=== PATIENT | male | born 1995 | race Caucasian/White ===

== ENCOUNTER 2018-03-28 13:29 | Emergency (ER) | payer BC, SELFPAY ==
[2018-03-28] MEDS ORDERED: LIDOCAINE 1% 20 ML MDV ONE (14:50)
[2018-03-28] MEDS ORDERED: TETANUS & DIPHTHERIA TOX,ADULT 0.5 ML VIAL ONE (14:50)
--- NOTE | 2018-03-28 16:07 | RAD REPORT ---
EXAM DESCRIPTION: RAD - Finger-Thumb Right - 03/28/2018 2:44 pm CLINICAL HISTORY: Soft tissue laceration of the thumb COMPARISON: None. FINDINGS: No fracture or acute bone finding. Bandaging around the thumb limits soft tissue detail. N o foreign body. IMPRESSION: No bone abnormality. No foreign body.
--- NOTE | 2018-03-28 16:28 | EDPHYS ---
Physician Documentation [facility] Name: Donnie Hughes Age: 23 yrs Sex: Male : 1995 Arrival Date: 03/28/2018 Time: 13:33 Bed 25 Private MD: ED Physician Mckinley Benjamin HPI: 03/28 14:19 This 23 yrs old Male presents to ER via Ambulatory with complaints of Thumb pm1 laceration. 14:19 The patient or guardian reports a laceration, 2 cm(s). The complaints affect the palmar pm1 aspect of distal phalanx of right thumb. Context: The problem was sustained at home, resulted from opening up can of food. Onset: The symptoms/episode began/occurred just prior to arrival. Modifying factors: The symptoms are alleviated by pressure to area, the symptoms are aggravated by nothing. Associated signs and symptoms: Pertinent negatives: cyanosis distally, decreased sensation distally, numbness distally, tingling distally. The patient has not experienced similar symptoms in the past. The patient has not recently seen a physician, the patient's primary care provider is Dr. Teixeira. Historical: - Allergies: 13:52 Augmentin (Vomiting); hb 13:52 Biaxin (Vomiting); hb - Home Meds: 13:52 Wellbutrin Oral [Active]; hb - PSHx: 13:52 testicle; hb - Immunization history:: Adult Immunizations up to date. - Social history:: Smoking status: Patient/guardian denies using tobacco. ROS: 14:20 Constitutional: Negative for fever, chills, and weight loss, Eyes: Negative for injury, pm1 pain, redness, and discharge, ENT: Negative for injury, pain, and discharge, Neck: Negative for injury, pain, and swelling, Cardiovascular: Negative for chest pain, palpitations, and edema, Respiratory: Negative for shortness of breath, cough, wheezing, and pleuritic chest pain, Abdomen/GI: Negative for abdominal pain, nausea, vomiting, diarrhea, and constipation, Back: Negative for injury and pain. 14:20 Neuro: Negative for headache, weakness, numbness, tingling, and seizure. 14:20 MS/extremity: Positive for laceration, of the palmar aspect of distal phalanx of right thumb. 14:20 Skin: Positive for laceration(s), of the palmar aspect of distal phalanx of right thumb. Exam: 14:20 Constitutional: This is a well developed, well nourished patient who is awake, alert, pm1 and in no acute distress. Head/Face: Normocephalic, atraumatic. Chest/axilla: Normal chest wall appearance and motion. Nontender with no deformity. No lesions are appreciated. Cardiovascular: Regular rate and rhythm with a normal S1 and S2. No gallops, murmurs, or rubs. Normal PMI, no JVD. No pulse deficits. Respiratory: Lungs have equal breath sounds bilaterally, clear to auscultation and percussion. No rales, rhonchi or wheezes noted. No increased work of breathing, no retractions or nasal flaring. Back: No spinal tenderness. No costovertebral tenderness. Full range of motion. 14:20 Musculoskeletal/extremity: Extremities: grossly normal except: noted in the palmar aspect of distal phalanx of right thumb: laceration, ROM: intact in all extremities, full active range of motion, in the right thumb, Circulation is intact in all extremities. Sensation intact. 14:20 Skin: Appearance: normal except for affected area, 2 cm laceration to palmar aspect of right thumb. 14:20 Neuro: Orientation: is normal, Motor: moves all fours, Gait: is steady, at a normal pace, without difficulty. Vital Signs: 13:52 BP 137 / 74; Pulse 82; Resp 16; Temp 98.1; Pulse Ox 100% on R/A; Weight 136.08 kg; hb Height 5 ft. 9 in. (175.26 cm); Pain 4/10; 14:52 BP 132 / 89; Pulse 91; Resp 16; Pulse Ox 99% ; Pain 4/10; tt1 15:55 BP 126 / 97; Pulse 80; Resp 16; Pulse Ox 97% ; Pain 5/10; tt1 13:52 Body Mass Index 44.30 (136.08 kg, 175.26 cm) hb Laceration: 16:25 Wound Repair of 2cm ( 0.8in ) subcutaneous laceration to palmar aspect of distal pm1 phalanx of right thumb. Irregularly shaped.. Distal neuro/vascular/tendon intact. Anesthesia: Digital block administered with 2 mls of 1% lidocaine. Wound prep: Extensive cleansing by nurse, Wound irrigation by nurse, Wound explored extensively, Copious irrigation. Skin closed with 5 5-0 Prolene using simple sutures and sterile technique. Dressed with 4x4's. Patient tolerated well. MDM: 13:55 Patient medically screened. pm1 16:26 Data reviewed: vital signs. Data interpreted: Pulse oximetry: on room air is 97 %. pm1 Interpretation: normal. Counseling: I had a detailed discussion with the patient and/or guardian regarding: the historical points, exam findings, and any diagnostic results supporting the discharge/admit diagnosis, the need for outpatient follow up, to return to the emergency department if symptoms worsen or persist or if there are any questions or concerns that arise at home. 03/28 14:35 Order name: Finger-Thumb Right; Complete Time: 16:25 EDCO 03/28 14:07 Order name: Wound Care; Complete Time: 14:51 pm1 Administered Medications: 15:00 Drug: Tetanus-Diphtheria Toxoid Adult 0.5 ml {Cotton Grower: [employer] \T\ [employer]izer. Exp: tl3 07/01/2020. Lot #: [id number]. } Route: IM; Site: right deltoid; 16:20 Follow up: Response: No adverse reaction tl3 16:20 Drug: Lidocaine (1 %) 5 ml {Note: per chucho.} Volume: 5 ml; Route: Infiltration; 3 16:20 Follow up: Response: No adverse reaction; Marked relief of symptoms tl3 Disposition: 03/29 12:35 Co-signature as Attending Physician, Mckinley Benjamin MD. Disposition: 03/28/18 16:28 Discharged to Home. Impression: Laceration without foreign body of right thumb without damage to nail. - Condition is Stable. - Discharge Instructions: Laceration Care, Adult. - Prescriptions for Bactrim DS 800- 160 mg Oral Tablet - take 1 tablet by ORAL route every 12 hours for 10 days; 20 tablet. - Work release form, Medication Reconciliation Form, Thank You Letter, Antibiotic Education, Prescription Opioid Use form. - Follow up: Emergency Department; When: As needed; Reason: Worsening of condition. Follow up: Private Physician; When: 2 - 3 days; Reason: Recheck today's complaints, Continuance of care, Re-evaluation by your physician. - Problem is new. - Symptoms have improved. Signatures: Dispatcher [employer] EDMS Chucho Chopra NP SUPERVISOR [employer]IANCE [employer]SEMBLY pm1 Chiquita Charles, RN RN hb Mckinley Benjamin MD MD gs Marilee Franco RN RN tl3 Corrections: (The following items were deleted from the chart) 03/28 14:35 14:07 Hand Right 3 View+RAD.RAD.BRZ ordered. EDMS EDMS
--- NOTE | 2018-03-28 16:28 | ER ---
Nurse's Notes [facility] Name: Donnie Hughes Age: 23 yrs Sex: Male : 1995 Arrival Date: 03/28/2018 Time: 13:33 Bed 25 Private MD: Diagnosis: Laceration without foreign body of right thumb without damage to nail Presentation: 03/28 13:50 Presenting complaint: Patient states: Cut right thumb on top of can at 1300 today. hb Bleeding controlled. Transition of care: patient was not received from another setting of care. Onset of symptoms was March 28, 2018 at 13:00. Initial Sepsis Screen: Does the patient meet any 2 criteria? No. Patient's initial sepsis screen is negative. Does the patient have a suspected source of infection? No. Patient's initial sepsis screen is negative. Care prior to arrival: None. 13:50 Method Of Arrival: Ambulatory hb 13:50 Acuity: QUE 4 hb Historical: - Allergies: 13:52 Augmentin (Vomiting); hb 13:52 Biaxin (Vomiting); hb - Home Meds: 13:52 Wellbutrin Oral [Active]; hb - PSHx: 13:52 testicle; hb - Immunization history:: Adult Immunizations up to date. - Social history:: Smoking status: Patient/guardian denies using tobacco. Screenin:18 Abuse screen: Denies threats or abuse. Denies injuries from another. Nutritional tl3 screening: No deficits noted. Tuberculosis screening: No symptoms or risk factors identified. Fall Risk None identified. Assessment: 14:00 General: Appears in no apparent distress. comfortable, well groomed, well developed, tl3 well nourished, Behavior is calm, cooperative, appropriate for age. Pain: Complains of pain in right hand and palmar aspect of distal phalanx of right thumb. Neuro: Level of Consciousness is awake, alert, obeys commands, Oriented to person, place, time, situation, Appropriate for age. Cardiovascular: Heart tones S1 S2 present. Respiratory: Airway is patent Trachea midline Respiratory effort is even, unlabored, Respiratory pattern is regular, symmetrical. GI: No signs and/or symptoms were reported involving the gastrointestinal system. : No signs and/or symptoms were reported regarding the genitourinary system. EENT: No signs and/or symptoms were reported regarding the EENT system. Derm: No signs and/or symptoms reported regarding the dermatologic system. Musculoskeletal: Capillary refill < 3 seconds, in right thumb. Injury Description: Laceration sustained to palmar aspect of distal phalanx of right thumb. 15:10 Reassessment: Patient appears in no apparent distress at this time. No changes from tl3 previously documented assessment. Patient and/or family updated on plan of care and expected duration. Pain level reassessed. Patient is alert, oriented x 3, equal unlabored respirations, skin warm/dry/pink. pt wound cleaned with betadine and saline, pressure dressing applied. 16:18 Reassessment: Patient appears in no apparent distress at this time. No changes from tl3 previously documented assessment. Patient and/or family updated on plan of care and expected duration. Pain level reassessed. Patient is alert, oriented x 3, equal unlabored respirations, skin warm/dry/pink. suturing being done at bedside. Vital Signs: 13:52 BP 137 / 74; Pulse 82; Resp 16; Temp 98.1; Pulse Ox 100% on R/A; Weight 136.08 kg; hb Height 5 ft. 9 in. (175.26 cm); Pain 4/10; 14:52 BP 132 / 89; Pulse 91; Resp 16; Pulse Ox 99% ; Pain 4/10; tt1 15:55 BP 126 / 97; Pulse 80; Resp 16; Pulse Ox 97% ; Pain 5/10; tt1 13:52 Body Mass Index 44.30 (136.08 kg, 175.26 cm) hb ED Course: 13:33 Patient arrived in ED. mr 13:51 Triage completed. hb 13:52 Arm band placed on left wrist. hb 13:55 Chucho Chopra NP is PHCP. pm1 13:55 Mckinley Benjamin MD is Attending Physician. pm1 14:00 No apparent distress. tl3 14:00 Patient has correct armband on for positive identification. Bed in low position. Call tl3 light in reach. Side rails up X 1. Adult w/ patient. 14:00 No provider procedures requiring assistance completed. Patient did not have IV access tl3 during this emergency room visit. 14:02 Marilee Franco RN is Primary Nurse. tl3 14:41 X-ray completed. Portable x-ray completed in exam room. Patient tolerated procedure la2 well. 14:44 Finger-Thumb Right In Process Unspecified. EDMS Administered Medications: 15:00 Drug: Tetanus-Diphtheria Toxoid Adult 0.5 ml {Junior Accountant Bookkeeper: [employer]. Exp: tl3 07/01/2020. Lot #: [id number]. } Route: IM; Site: right deltoid; 16:20 Follow up: Response: No adverse reaction tl3 16:20 Drug: Lidocaine (1 %) 5 ml {Note: per chucho.} Volume: 5 ml; Route: Infiltration; tl3 16:20 Follow up: Response: No adverse reaction; Marked relief of symptoms tl3 Outcome: 16:28 Discharge ordered by MD. pm1 16:48 Patient left the ED. tl3 16:59 Discharged to home ambulatory. tl3 16:59 Condition: stable 16:59 Discharge instructions given to patient, family, Instructed on discharge instructions, follow up and referral plans. medication usage, Demonstrated understanding of instructions, follow-up care, medications, wound care, Prescriptions given X 1. Signatures: Dispatcher [employer] EDMS Uday Sienna John tt1 Chucho Chopra, ABY PHERESIS SPECIALIST pm1 Chiquita Charles, RN RN Ana Luisa Cartagena la2 Marilee Franco, LUIS RN tl3
== END 2018-03-28 16:48 | disposition home or self-care (01) ==
LOC: ER 13:29
PROC: 0JQJ0ZZ Repair Right Hand Subcutaneous Tissue and Fascia, Open Approach (ICD-10-PCS; principal; 2018-03-28)
DX: S61.011A Laceration without foreign body of right thumb without damage to nail, initial encounter (principal); W26.9XXA Contact with unspecified sharp object(s), initial encounter; Y93.89 Activity, other specified; Y92.000 Kitchen of unspecified non-institutional (private) residence as the place of occurrence of the external cause; Z23 Encounter for immunization; Z88.1 Allergy status to other antibiotic agents; Z88.8 Allergy status to other drugs, medicaments and biological substances
CPT/HCPCS: 90714; 99283

== ENCOUNTER 2018-06-09 07:04 | Emergency (ER) | payer BC ==
[2018-06-09] MEDS ORDERED: NA CHLORIDE 0.9% 1,000 ML ONE (07:37)
[2018-06-09] MEDS ORDERED: ONDANSETRON 4 MG/2 ML VIAL ONE ×2 (07:37→09:49)
[2018-06-09 08:07] LABS: Absolute Lymphocytes (CBC) 1.1 K/uL (0.7-4.9); Absolute Monocytes 0.8 K/uL (0.1-1.3); Absolute Neutrophil 6.8 K/uL (1.8-8.0); Basophils % 0.5 % (0-1.3); Eosinophils % 1.6 % (0-4.4); Hematocrit 43.1 % (39.6-49.0); Lymphocytes % 12.9 % (15.3-44.8); MCH 28.9 pg (27.0-35.0); MCV 83.9 fL (80-100); MPV 8.2 fL (7.6-11.3); Monocytes % 9.1 % (3.3-12.3); RBC Red Blood Cell Count 5.14 M/uL (4.33-5.43)
[2018-06-09 08:16] LABS: Albumin 4.2 g/dL (3.4-5.0); Bilirubin Direct 0.1 mg/dL (0-0.2); Bilirubin Total 0.5 mg/dL (0.2-1.0); Potassium 3.9 mmol/L (3.5-5.1); Protein, Total 7.7 g/dL (6.4-8.2)
[2018-06-09 09:35] LABS: Urine Blood NEGATIVE (NEG); Urine Glucose NEGATIVE (NEG); Urine Protein NEGATIVE (NEG)
--- NOTE | 2018-06-09 09:57 | RAD REPORT ---
EXAM DESCRIPTION: CTAbdomen Pelvis W Contrast - 06/09/2018 9:38 am CLINICAL HISTORY: Abdominal pain. bloody stools;Abd pain COMPARISON: No comparisons TECHNIQUE: Biphasic CT imaging of the abdomen and pelvis was performed with 100 ml non-ionic IV cont rast. All CT scans are performed using dose optimization technique as appropriate and may include automated exposure control or mA/KV adjustment according to patient size. FINDINGS: The lung bases are clear. The liver demonstrates diffuse fatty infiltration. The spleen, pancreas, adrenal glands and kidneys a re within normal limits. No bowel obstruction, free air, free fluid or abscess. The appendix is normal. No evidence of signi ficant lymphadenopathy. No suspicious bony findings. IMPRESSION: No acute intra-abdominal or pelvic finding.
--- NOTE | 2018-06-09 10:20 | EDPHYS ---
Physician Documentation [facility] Name: Donnie Hughes Age: 23 yrs Sex: Male : 1995 Arrival Date: 06/09/2018 Time: 07:05 Bed 16 Private MD: Jean Carlos Teixeira E ED Physician Roman Moon HPI: 06/09 07:38 This 23 yrs old Male presents to ER via Ambulatory with complaints of Bloody rn Stools, Weakness, Dizziness. 07:38 The patient presents to the emergency department with rectal bleeding. Onset: The rn symptoms/episode began/occurred last night. Abdominal pain: described as achy, located in the suprapubic area, right lower quadrant and left lower quadrant, that does not radiate. Modifying factors: The symptoms are alleviated by nothing, the symptoms are aggravated by nothing. Severity of symptoms: At their worst the symptoms were mild in the emergency department the symptoms are unchanged. The patient has not experienced similar symptoms in the past. Reports 4 episodes of bloody stool, bright red, mild to moderate amount, + mild dizziness, + mild lower abd pressure, blood mixed with stool. . Historical: - Allergies: 07:12 Augmentin (Vomiting); hj 07:12 Biaxin (Vomiting); hj - Home Meds: 07:12 Wellbutrin Oral [Active]; hj - PMHx: 07:12 Depression; hj - PSHx: 07:12 testicle; hj - Immunization history:: Adult Immunizations up to date. - Social history:: Smoking status: Patient/guardian denies using tobacco, Patient/guardian denies using alcohol. - Ebola Screening: : Patient negative for fever greater than or equal to 101.5 degrees Fahrenheit, and additional compatible Ebola Virus Disease symptoms Patient denies exposure to infectious person Patient denies travel to an Ebola-affected area in the 21 days before illness onset. - Family history:: not pertinent. - Hospitalizations: : No recent hospitalization is reported. ROS: 07:38 Constitutional: Negative for fever, chills, and weight loss, Eyes: Negative for injury, rn pain, redness, and discharge, Cardiovascular: Negative for chest pain, palpitations, and edema, Respiratory: Negative for shortness of breath, cough, wheezing, and pleuritic chest pain, Abdomen/GI: + abd pain and rectal bleeding MS/Extremity: Negative for injury and deformity, Skin: Negative for injury, rash, and discoloration, Neuro: + lightheaded and dizzy Exam: 07:38 Constitutional: Overweight male, no acute distress Head/Face: Normocephalic, rn atraumatic. Eyes: Pupils equal round and reactive to light, extra-ocular motions intact. Lids and lashes normal. Conjunctiva and sclera are non-icteric and not injected. Cornea within normal limits. Periorbital areas with no swelling, redness, or edema. ENT: dry MM Cardiovascular: Regular rate and rhythm with a normal S1 and S2. No gallops, murmurs, or rubs. Normal PMI, no JVD. No pulse deficits. Respiratory: Lungs have equal breath sounds bilaterally, clear to auscultation and percussion. No rales, rhonchi or wheezes noted. No increased work of breathing, no retractions or nasal flaring. Abdomen/GI: soft, + mild lower abd tenderness, no guarding/rebound MS/ Extremity: Pulses equal, no cyanosis. Neurovascular intact. Full, normal range of motion. Equal circumference. Neuro: Awake and alert, GCS 15, oriented to person, place, time, and situation. Cranial nerves II-XII grossly intact. Motor strength 5/5 in all extremities. Sensory grossly intact. Vital Signs: 07:13 BP 141 / 89; Pulse 90; Resp 18; Temp 98.9(O); Pulse Ox 96% on R/A; Weight 136.08 kg; hj Height 5 ft. 9 in. (175.26 cm); Pain 2/10; 07:43 BP 131 / 91; Pulse 88; Resp 19; Pulse Ox 98% on R/A; ae1 08:58 BP 126 / 70; Pulse 93; Resp 17; Pulse Ox 97% on R/A; mh5 10:36 BP 121 / 83; Pulse 92; Resp 16; Pulse Ox 96% on R/A; ae1 07:13 Body Mass Index 44.30 (136.08 kg, 175.26 cm) MDM: 07:15 Patient medically screened. rn 10:16 Differential diagnosis: hemorrhoids, proctitis, colitis. Data reviewed: vital signs, rn nurses notes, lab test result(s), radiologic studies, CT scan, and as a result, I will discharge patient. Counseling: I had a detailed discussion with the patient and/or guardian regarding: the historical points, exam findings, and any diagnostic results supporting the discharge/admit diagnosis, lab results, radiology results, the need for outpatient follow up, to return to the emergency department if symptoms worsen or persist or if there are any questions or concerns that arise at home. Special discussion: I discussed with the patient/guardian in detail that at this point there is no indication for admission to the hospital. It is understood, however, that if the symptoms persist or worsen the patient needs to return immediately for re-evaluation. Based on the history and exam findings, there is no indication for further emergent testing or inpatient evaluation. I discussed with the patient/guardian the need to see the licensed psychologist for further evaluation of the symptoms. ED course: Pt with stable vitals, normal H/H, painless rectal bleeding, most likely internal hemorrhoids, will dc home with abx in case early inflammation given abd pressure, and GI f/u, return precautions given and understood.. 06/09 07:31 Order name: Basic Metabolic Panel; Complete Time: 08:19 rn 06/09 07:31 Order name: CBC with Diff; Complete Time: 08:19 rn 06/09 07:31 Order name: Hepatic Function; Complete Time: 08:19 rn 06/09 07:31 Order name: Lipase; Complete Time: 08:19 rn 06/09 07:31 Order name: CT Abd/Pelvis - W/Contrast; Complete Time: 10:04 rn 06/09 08:56 Order name: Urine Dipstick--Ancillary (enter results); Complete Time: 09:45 ag 06/09 07:31 Order name: IV Saline Lock; Complete Time: 07:32 rn 06/09 07:31 Order name: Labs collected and sent; Complete Time: 07:40 rn Administered Medications: 07:33 Drug: Zofran 4 mg Route: IVP; Site: left antecubital; ae1 08:23 Follow up: Response: Nausea is decreased ae1 07:33 Drug: NS 0.9% 1000 ml Route: IV; Rate: 1000 ml; Site: left antecubital; ae1 10:37 Follow up: IV Status: Completed infusion ae1 09:50 Drug: Zofran 4 mg Route: IVP; Site: left antecubital; ae1 10:37 Follow up: Response: Nausea is decreased ae1 Disposition: 07/11/18 10:19 Discharged to Home. Impression: Rectal bleeding. - Condition is Stable. - Discharge Instructions: Gastrointestinal Bleeding, Hemorrhoids. - Prescriptions for Cipro 500 mg Oral Tablet - take 1 tablet by ORAL route every 12 hours for 10 days; 20 tablet. Flagyl 500 mg Oral Tablet - take 1 tablet by ORAL route every 8 hours for 10 days; 30 tablet. - Medication Reconciliation Form, Thank You Letter, Antibiotic Education, Prescription Opioid Use form. - Follow up: Hiram Colon MD; When: 5 - 6 days; Reason: Recheck today's complaints, Re-evaluation by your physician. - Problem is new. - Symptoms have improved. Signatures: Dispatcher [employer] EDMS Roman Moon MD MD rn Joaquin, Henry, RN RN hj Elliott, Andrea, RN RN ae1 Corrections: (The following items were deleted from the chart) 10:20 10:19 06/09/2018 10:19 Discharged to Home. Impression: Rectal bleeding. Condition is rn Stable. Forms are Medication Reconciliation Form, Thank You Letter, Antibiotic Education, Prescription Opioid Use. Follow up: Private Physician; When: As needed; Reason: Recheck today's complaints, Re-evaluation by your physician. Problem is new. Symptoms have improved. rn 10:38 10:20 06/09/2018 10:19 Discharged to Home. Impression: Rectal bleeding. Condition is ae1 Stable. Discharge Instructions: Gastrointestinal Bleeding, Hemorrhoids. Prescriptions for Cipro 500 mg Oral Tablet - take 1 tablet by ORAL route every 12 hours for 10 days; 20 tablet, Flagyl 500 mg Oral Tablet - take 1 tablet by ORAL route every 8 hours for 10 days; 30 tablet. and Forms are Medication Reconciliation Form, Thank You Letter, Antibiotic Education, Prescription Opioid Use. Follow up: Hiram Colon; When: 5 - 6 days; Reason: Recheck today's complaints, Re-evaluation by your physician. Problem is new. Symptoms have improved. rn
--- NOTE | 2018-06-09 10:20 | ER ---
Nurse's Notes [facility] Name: Donnie Hughes Age: 23 yrs Sex: Male : 1995 Arrival Date: 06/09/2018 Time: 07:05 Bed 16 Private MD: Jean Carlos Teixeira E Diagnosis: Rectal bleeding Presentation: 06/09 07:09 Presenting complaint: Patient states: last day and a half, i had 5 BM's with fresh, hj bright red blood; reports weakness, dizziness, nausea; reports abd pain; reprots chills;. Transition of care: patient was not received from another setting of care. Onset of symptoms was June 09, 2018. Risk Assessment: Do you want to hurt yourself or someone else? Patient reports no desire to harm self or others. Initial Sepsis Screen: Does the patient meet any 2 criteria? No. Patient's initial sepsis screen is negative. Does the patient have a suspected source of infection? No. Patient's initial sepsis screen is negative. Care prior to arrival: None. 07:09 Method Of Arrival: Ambulatory 07:09 Acuity: QUE 3 hj Triage Assessment: 07:12 General: Appears in no apparent distress. uncomfortable, Behavior is calm, cooperative, hj appropriate for age. Pain: Complains of pain in abdomen. GI: Abdomen is non-distended, Bowel sounds present X 4 quads. Abd is soft and non tender Reports lower abdominal pain, upper abdominal pain, bloody stool, nausea. Historical: - Allergies: 07:12 Augmentin (Vomiting); hj 07:12 Biaxin (Vomiting); hj - Home Meds: 07:12 Wellbutrin Oral [Active]; - PMHx: 07:12 Depression; - PSHx: 07:12 testicle; hj - Immunization history:: Adult Immunizations up to date. - Social history:: Smoking status: Patient/guardian denies using tobacco, Patient/guardian denies using alcohol. - Ebola Screening: : Patient negative for fever greater than or equal to 101.5 degrees Fahrenheit, and additional compatible Ebola Virus Disease symptoms Patient denies exposure to infectious person Patient denies travel to an Ebola-affected area in the 21 days before illness onset. - Family history:: not pertinent. - Hospitalizations: : No recent hospitalization is reported. Screenin:13 Abuse screen: Denies threats or abuse. Denies injuries from another. Nutritional hj screening: No deficits noted. Tuberculosis screening: No symptoms or risk factors identified. Fall Risk None identified. Assessment: 07:41 General: Appears uncomfortable, obese, Behavior is cooperative, anxious. Pain: ae1 Complains of pain in umbilical area. Pain: Pain does not radiate. Quality of pain is described as aching. Neuro: Cardiovascular: Heart tones S1 S2 present Patient's skin is warm and dry. Respiratory: Airway is patent Respiratory effort is even, unlabored, Respiratory pattern is regular, symmetrical, Breath sounds are clear bilaterally. GI: Bowel sounds present X 4 quads. Reports lower abdominal pain, bloody stool, nausea. : No signs and/or symptoms were reported regarding the genitourinary system. EENT: wears glasses. Derm: Skin is pale. Musculoskeletal: No signs and/or symptoms reported regarding the musculoskeletal system. 07:57 Reassessment: Notified CT via telephone that patient completed PO contrast. ae1 08:22 Reassessment: Patient appears in no apparent distress at this time. Patient and/or ae1 family updated on plan of care and expected duration. Pain level reassessed. 09:45 Reassessment: Notified Provider that patient is experiencing nausea after returning ae1 from CT. New orders received. Vital Signs: 07:13 BP 141 / 89; Pulse 90; Resp 18; Temp 98.9(O); Pulse Ox 96% on R/A; Weight 136.08 kg; hj Height 5 ft. 9 in. (175.26 cm); Pain 2/10; 07:43 BP 131 / 91; Pulse 88; Resp 19; Pulse Ox 98% on R/A; ae1 08:58 BP 126 / 70; Pulse 93; Resp 17; Pulse Ox 97% on R/A; mh5 10:36 BP 121 / 83; Pulse 92; Resp 16; Pulse Ox 96% on R/A; ae1 07:13 Body Mass Index 44.30 (136.08 kg, 175.26 cm) ED Course: 07:05 Patient arrived in ED. ds1 07:05 Jean Carlos Teixeira MD is Private Physician. ds1 07:11 Triage completed. hj 07:13 Arm band placed on right wrist. hj 07:13 Patient has correct armband on for positive identification. Placed in gown. Bed in low hj position. Call light in reach. Side rails up X 1. Adult w/ patient. 07:15 Roman Moon MD is Attending Physician. rn 07:16 Konstantin Sharpe, RN is Primary Nurse. ae1 07:31 Inserted saline lock: 20 gauge in left antecubital area, using aseptic technique. Blood ae1 collected. 09:02 Urine Dipstick--Ancillary (enter results) Sent. [facility] 09:02 Urine collected: clean catch specimen, clear. 5 09:39 CT Abd/Pelvis - W/Contrast In Process Unspecified. EDMS 10:20 Hiram Colon MD is Referral Physician. rn 10:36 No provider procedures requiring assistance completed. IV discontinued, intact, ae1 bleeding controlled, No redness/swelling at site. Pressure dressing applied. Administered Medications: 07:33 Drug: Zofran 4 mg Route: IVP; Site: left antecubital; ae1 08:23 Follow up: Response: Nausea is decreased ae1 07:33 Drug: NS 0.9% 1000 ml Route: IV; Rate: 1000 ml; Site: left antecubital; ae1 10:37 Follow up: IV Status: Completed infusion ae1 09:50 Drug: Zofran 4 mg Route: IVP; Site: left antecubital; ae1 10:37 Follow up: Response: Nausea is decreased ae1 Outcome: 10:19 Discharge ordered by . rn 10:36 Discharged to home ambulatory, with family. ae1 10:36 Condition: stable 10:36 Discharge instructions given to patient, Instructed on discharge instructions, follow up and referral plans. medication usage, Demonstrated understanding of instructions, Prescriptions given X 2. 10:38 Patient left the ED. ae1 Signatures: Dispatcher [employer] [facility] Chairez, Sandee [facility] Roman Moon MD MD rn Joaquin, Henry, RN RN hj Elliott, Andrea, LUIS SMITH ae1 Margie Schultz [facility]
== END 2018-06-09 10:38 | disposition home or self-care (01) ==
LOC: ER 07:04
DX: K62.5 Hemorrhage of anus and rectum (principal); F32.9 Major depressive disorder, single episode, unspecified; Z88.1 Allergy status to other antibiotic agents; Z88.8 Allergy status to other drugs, medicaments and biological substances
CPT/HCPCS: 36415; 74177; 80048; 80076; 81003; 83690; 85025; 96361; 96374; 99284; J2405; J7030; Q9967

== ENCOUNTER 2024-08-31 07:51 | Emergency (ER) | payer BC, OTHER, SELFPAY ==
--- OUTSIDE RECORDS SUMMARY | 2024-08-31 07:54 | XMS REPORT | Continuity of Care Document ---
Author Name Unknown Address [address] [place] [address] [facility] Address 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 Name Role Phone Georgi Grijalva MD Primary Care Physician + [phone] AMAURY NUNN Attending Clinician Unavaila GEORGI Mcconnell Attending Clinician Unavailable ROSENDO ELIZABETH Attending Clinician Unavailable Doctor Unassigned, [place] Attending Clinician U Georgi Thomas MD Attending Clinician [phone] ROB BROOKS Attending Clinician Unavailab ROB Verdugo Attending Clinician Unavailab Carline Griffith Attending Clinician [phone] JACQUI SU K.HColleen Attending Clinician UnavailCARLINE Davis Attending Clinician Unavailable Only, Adc Test Attending Clinician Unavailable Jacqui Su MD K.H. Attending Clinician + [phone], Adc Lab Attending Clinician Unavailable JACQUI SU K.HColleen Admitting Clinician Unavailchucho melgoza Payers Payer Name Policy Type Policy Number Effective Date Expirati on Date Source [employer] II [id number] 2021 00:00:00 Problems Condition Name Condition Details Condition Category Status Onset Date Resolution Date Last Treatment Date Treating Clinician Comments Source Impotence of organic origin Impotence of organic origin Disease Active 2021-11 00:00: 00 [facility] Low testostero ne in male Low testostero ne in male Disease Active 2022-1 1-15 00:00: 00 [facility] Gastroesop hageal reflux disease without esophagiti s Gastroesop hageal reflux disease without esophagiti s Disease Active 8- 00:00: 00 [facility] Atypical chest pain Atypical chest pain Disease Active 8- 00:00: 00 [facility] Essential hypertensi on Essential hypertensi on Disease Active 8- 00:00: 00 [facility] Chronic midline low back pain without sciatica Chronic midline low back pain without sciatica Disease Active 8- 00:00: 00 [facility] Pain in joint involving multiple sites Pain in joint involving multiple sites Disease Active 8 00:00: 00 [facility] Moderate recurrent major depression Moderate recurrent major depression Disease Active 8 00:00: 00 [facility] Severe obesity (BMI >= 40) Severe obesity (BMI >= 40) Disease Active 07-01 00:00: 00 [facility] Post-COVID syndrome Post-COVID syndrome Disease Active 6-14 00:00: 00 [facility] Post-COVID syndrome Post-COVID syndrome Disease Active 614 00:00: 00 [facility] Anxiety, generalize d Anxiety, generalize d Disease Active 18 00:00: 00 [facility] Primary insomnia Primary insomnia Disease Active 18 00:00: 00 [facility] Panic attack as reaction to stress Panic attack as reaction to stress Disease Active 18 00:00: 00 [facility] Suicidal ideation Suicidal ideation Disease Active 18 00:00: 00 [facility] Bilateral chronic knee pain Bilateral chronic knee pain Disease Active 18 00:00: 00 [facility] Allergies, Adverse Reactions, Alerts Allergy Name Allergy Type Status Severity Reaction(s) Onset Date Inactive Date Treating Clinician Comments Source Amoxicil leandro Propensi ty to adverse reaction s Active Nausea and/or Vomiting 04-08 00:00: 00 [facility] Clarithr omycin Propensi ty to adverse reaction s Active Nausea and/or Vomiting 04-08 00:00: 00 [facility] AMOXICIL LEANDRO DRUG INGREDI Active Diarrhea 04-08 00:00: 00 [facility] CLARITHR OMYCIN DRUG INGREDI Active Diarrhea 04-08 00:00: 00 [facility] Social History Social Habit Start Date Stop Date Quantity Comments Source Exposure to SARS-CoV-2 (event) 2022-11-22 00:00:00 2022-12-02 12:06:00 Not sure [facility] Tobacco use and exposure 2022-12-02 00:00:00 2022-12-02 00:00:00 Smokeless tobacco non-user [facility] Sex Assigned At 1995 00:00:00 1995 00:00:00 [facility] Smoking Status Start Date Stop Date Source Tobacco smoking consumption unknown [facility] Never smoked tobacco [facility] Medications Ordered Medication Name Filled Medication Name Start Date Stop Date Current Medication? Ordering Clinician Indication Dosage Frequency Signature (SIG) Comments Components Source tadalafiL (CIALIS) 5 mg tablet 12-02 00:00: 00 08-30 04:59 :00 No [id number] 5mg Take 1 tablet by mouth in the morning for 270 days. [facility] gabapentin 100 mg capsule 2021-11 00:00: 00 Yes [id number] 100mg Take 1 capsule by mouth in the morning and 1 capsule at noon and 1 capsule in the evening. [facility] traZODone 50 mg tablet 2021-11 00:00: 00 Yes [id number] 50mg Take 1-2 tablets by mouth at bedtime as needed for Insomnia. [facility] triamcinolo ne acetonide 0.1 % cream 2021-11 00:00: 00 Yes [id number] Apply to area(s) 2 (two) times daily. [facility] hydrOXYzine 50 mg tablet 2021-11 00:00: 00 Yes [id number] 50mg Take 1 tablet by mouth 3 (three) times daily as needed for Itching. [facility] methylPREDN ISolone (MEDROL, PATY,) 4 mg tablets 2021-11 00:00: 00 Yes [id number] Take by mouth SEE-INSTRU CTIONS. follow package directions [facility] losartan 50 mg tablet 2021-11 00:00: 00 Yes [id number] 50mg Take 1 tablet by mouth in the morning. [facility] losartan 25 mg tablet 07-25 00:00: 00 09-08 00:00 :00 No [id number] 25mg Take 1 tablet by mouth in the morning. [facility] omeprazole 40 mg capsule 07-22 00:00: 00 Yes [id number] 40mg Take 1 capsule by mouth in the morning. [facility] Lidocaine 5 % cream 07-01 00:00: 00 Yes [id number] Apply to area(s) 2 (two) times daily as needed for Pain (scale 4-6). Apply 5g to affected areas BID PRN [facility] doxepin 10 mg capsule 07-01 00:00: 00 Yes [id number] 10mg Take 1 capsule by mouth at bedtime. [facility] DULoxetine (CYMBALTA) 20 mg capsule 07-01 00:00: 00 Yes [id number] 20mg Take 1 capsule by mouth in the morning. [facility] tiZANidine 2 mg tablet 07-01 00:00: 00 Yes [id number] 2mg Take 1 tablet by mouth every 8 (eight) hours as needed (muscle spasms). [facility] traZODone 50 mg tablet 07-01 00:00: 00 10-14 00:00 :00 No [id number] 50mg Take 1 tablet by mouth at bedtime. [facility] lisinopriL 5 mg tablet 07-01 00:00: 00 07-25 00:00 :00 No [id number] 5mg Take 1 tablet by mouth in the morning. [facility] Cholecalcif rose marie, Vitamin D3, (VITAMIN D3) 125 mcg (5,000 unit) tablet 05-13 00:00: 00 Yes [id number] 5000U Take 1 tablet by mouth daily. [facility] ascorbic acid, vitamin C, (VITAMIN C) 500 mg tablet 05-13 00:00: 00 Yes [id number] 500mg Take 1 tablet by mouth daily. [facility] Zinc Gluconate 100 mg Tab 05-13 00:00: 00 Yes [id number] 1{tbl} Take 1 tablet by mouth daily. [facility] Magnesium 250 mg Tab 05-13 00:00: 00 Yes [id number] 1{tbl} Take 1 tablet by mouth daily. [facility] Diclofenac Sodium (VOLTAREN) 1 % gel 04-08 00:00: 00 Yes [id number] Apply to area(s) 4 (four) times daily. Apply 4 g qid [facility] acetaminoph en 650 mg CR tablet 04-08 00:00: 00 Yes [id number] 650mg Take 1 tablet by mouth every 8 (eight) hours as needed for Pain or Fever. [facility] Vital Signs Vital Name Observation Time Observation Value Comments S ource Systolic blood pressure 2022-10-14 22:08:00 135 mm[Hg] [facility] Diastolic blood pressure 2022-10-14 22:08:00 88 mm[Hg] [facility] Heart rate 2022-10-14 22:08:00 73 /min [facility] Body temperature 2022-10-14 22:08:00 36.28 [facility] Respiratory rate 2022-10-14 22:08:00 18 /min [facility] Body height 2022-10-14 22:08:00 175.3 cm [facility] Body weight 2022-10-14 22:08:00 151.819 kg [facility] BMI 2022-10-14 22:08:00 49.43 kg/m2 [facility] Oxygen saturation in Arterial blood by Pulse oximetry 2022-10-14 22:08:00 97 /min [facility] Systolic blood pressure 2022-09-24 18:57:00 133 mm[Hg] [facility] Diastolic blood pressure 2022-09-24 18:57:00 89 mm[Hg] [facility] Heart rate 2022-09-24 18:57:00 68 /min [facility] Body temperature 2022-09-24 18:57:00 36.83 [facility] Respiratory rate 2022-09-24 18:57:00 18 /min [facility] Body height 2022-09-24 18:57:00 175.3 cm [facility] Body weight 2022-09-24 18:57:00 151.002 kg [facility] BMI 2022-09-24 18:57:00 49.16 kg/m2 [facility] Oxygen saturation in Arterial blood by Pulse oximetry 2022-09-24 18:57:00 95 /min [facility] Systolic blood pressure 2022-09-08 19:57:00 133 mm[Hg] [facility] Diastolic blood pressure 2022-09-08 19:57:00 74 mm[Hg] [facility] Heart rate 2022-09-08 19:57:00 82 /min [facility] Body temperature 2022-09-08 19:57:00 36.17 [facility] Body weight 2022-09-08 19:57:00 150.458 kg [facility] BMI 2022-09-08 19:57:00 48.98 kg/m2 [facility] Oxygen saturation in Arterial blood by Pulse oximetry 2022-09-08 19:57:00 94 /min [facility] Systolic blood pressure 2022-07-25 14:27:00 148 mm[Hg] [facility] Diastolic blood pressure 2022-07-25 14:27:00 84 mm[Hg] [facility] Heart rate 2022-07-25 14:27:00 70 /min [facility] Body temperature 2022-07-25 14:27:00 37 [facility] Respiratory rate 2022-07-25 14:27:00 16 /min [facility] Body height 2022-07-25 14:27:00 175.3 cm [facility] Body weight 2022-07-25 14:27:00 148.598 kg [facility] BMI 2022-07-25 14:27:00 48.38 kg/m2 [facility] Oxygen saturation in Arterial blood by Pulse oximetry 2022-07-25 14:27:00 98 /min [place] [facility] Procedures Procedure Date / Time Performed Performing Clinicia n Source PATIENT QUESTIONNAIRE 2022-12-02 06:01:00 Doctor Unassigned, [place] [facility] Encounters Start Date/Time End Date/Time Encounter Type Admission Type Attending Clinicians Care Facility Care Department Encounter ID Source 2023-02-03 13:40:00 2023-02-03 13:40:00 Outpatient GEORGI MUÑOZ [facility] [id number] [facility] 2022-12-02 13:00:00 2022-12-02 13:23:00 Outpatient ROSENDO CLARK [facility] [id number] [facility] 2022-12-02 00:00:00 2022-12-02 00:00:00 Orders Only Doctor Unassigned, [place] [facility] 1.2.840.114 350.1.13.10 4.2.7.2.686 [id number] [facility] 2022-10-28 10:40:00 2022-10-28 10:40:00 Outpatient GEORGI MUÑOZ [facility] [id number] [facility] 2022-10-28 10:40:00 2022-10-28 10:40:00 Outpatient GEORGI MUÑOZ [facility] [id number] [facility] 2022-10-14 15:40:00 2022-10-14 17:04:14 Outpatient GEORGI MUÑOZ [facility] [id number] [facility] 2022-10-14 15:40:00 2022-10-14 17:04:14 Office Visit Georgi Grijalva [facility] 1.2.840.114 350.1.13.10 4.2.7.2.686 [id number] [facility] 2022-09-24 13:30:00 2022-09-24 14:36:58 Outpatient R TODD FEDERICOZAYDA WELCHDEBORAH [facility] [id number] [facility] 2022-09-24 13:30:00 2022-09-24 14:36:58 [facility] 1.2.840.114 350.1.13.10 4.2.7.2.686 [id number] [facility] 2022-09-08 15:00:00 2022-09-08 15:40:00 Office Visit Carline Juan [facility] 1.2.840.114 350.1.13.10 4.2.7.2.686 [id number] [facility] 2022-09-08 15:30:00 2022-09-08 15:30:00 Outpatient JACQUI ROBISON [facility] [id number] [facility] 2022-09-08 15:00:00 2022-09-08 15:00:00 Outpatient R CARLINE JUAN [facility] [id number] [facility] 2022-08-19 09:50:35 2022-08-19 23:59:00 Outpatient JACQUI ROBISON [facility] [id number] [facility] 2022-08-19 10:00:00 2022-08-19 10:00:00 Outpatient JACQUI ROBISON [facility] [id number] [facility] 2022-08-18 09:30:00 2022-08-18 09:45:00 Laboratory Only Only, Adc Test Jacqui Su [facility] 1.840.114 350.1.13.10 4.2.7.2.686 [id number] [facility] 2022-08-18 09:30:00 2022-08-18 09:30:00 Outpatient R JACQUI SU [facility] [id number] [facility] 2022-07-29 00:00:00 2022-07-29 00:00:00 Orders Only Doctor Unassigned, [place] [facility] 1.840.114 350.1.13.10 4.2.7.2.686 [id number] [facility] 2022-07-25 09:00:00 2022-07-25 10:06:37 Outpatient R JACQUI SU [facility] [id number] [facility] 2022-07-25 09:00:00 2022-07-25 10:06:37 [facility] 1.840.114 350.1.13.10 4.2.7.2.686 [id number] [facility] 2022-07-25 09:00:00 2022-07-25 10:06:37 Outpatient R JACQUI SU [facility] [id number] [facility] 2022-07-22 12:39:20 2022-07-22 23:59:00 Outpatient R GEORGI GRIJALVA [facility] [id number] [facility] 2022-07-22 12:00:00 2022-07-22 23:59:00 Hospital Encounter Georgi Grijalva [facility] 1.840.114 350.1.13.10 4.2.7.2.686 [id number] [facility] 2022-07-22 12:39:20 2022-07-22 12:39:20 Outpatient R GEORGI GRIJALVA [facility] [id number] [facility] 2022-07-22 10:40:00 2022-07-22 11:26:21 Office Visit Georgi Grijalva [facility] 1.2.840.114 350.1.13.10 4.2.7.2.686 [id number] [facility] 2022-07-22 10:40:00 2022-07-22 11:26:21 Outpatient R SHAYGEORGI PLATA [facility] [id number] [facility] 2022-07-22 00:00:00 2022-07-22 00:00:00 Orders Only Doctor Unassigned, [place] [facility] 1.2.840.114 350.1.13.10 4.2.7.2.686 [id number] [facility] 2022-07-01 10:20:00 2022-07-01 11:05:34 Outpatient R SHAYGEORGI PLATA [facility] [id number] [facility] 2022-07-01 10:20:00 2022-07-01 11:05:34 Office Visit Georgi Grijalva [facility] 1.2.840.114 350.1.13.10 4.2.7.2.686 [id number] [facility] 2022-07-01 10:20:00 2022-07-01 11:05:34 Outpatient R SHAYNARCISOGEORGI DEL CID [facility] [id number] [facility] 2022-05-13 15:20:00 2022-05-13 15:36:28 Outpatient R SHAYNARCISOAMRITHARRIETT GEORGI [facility] [id number] [facility] 2022-05-13 15:20:00 2022-05-13 15:36:28 Telemedici ne Visit [place], Peter [facility] 1.2.840.114 350.1.13.10 4.2.7.2.686 [id number] [facility] 2022-05-13 15:20:00 2022-05-13 15:20:00 Outpatient R GEORGI GRIJALVA [facility] [id number] [facility] 2022-05-02 00:00:00 2022-05-02 00:00:00 Telephone Georgi Grijalva [facility] 1.2.840.114 350.1.13.10 4.2.7.2.686 [id number] [facility] 2022-04-16 08:20:00 2022-04-16 09:31:13 Outpatient R GEORGI GRIJALVA [facility] [id number] [facility] 2022-04-16 08:20:00 2022-04-16 09:31:13 Office Visit Georgi Grijalva [facility] 1.2.840.114 350.1.13.10 4.2.7.2.686 [id number] [facility] 2022-04-16 08:20:00 2022-04-16 08:20:00 Outpatient R GEORGI GRIJALVA [facility] [id number] [facility] 2022-04-11 00:00:00 2022-04-11 00:00:00 Telephone Georgi Grijalva [facility] 1.2.840.114 350.1.13.10 4.2.7.2.686 [id number] [facility] 2022-04-08 15:30:00 2022-04-08 15:45:00 Options Advisor Visit 2, Adc Lab Georgi Grijalva [facility] 1.2.840.114 350.1.13.10 4.2.7.2.686 [id number] [facility] 2022-04-08 15:30:00 2022-04-08 15:30:00 Outpatient R GEORGI GRIJALVA [facility] [id number] [facility] 2022-04-08 14:00:00 2022-04-08 15:18:39 Office Visit Georgi Grijalva [facility] 1.2.840.114 350.1.13.10 4.2.7.2.686 [id number] [facility] 2022-04-08 14:00:00 2022-04-08 15:18:39 Outpatient R GEORGI GRIJALVA [facility] [id number] [facility]
[2024-08-31] MEDS ORDERED: FAMOTIDINE 20 MG/2 ML VIAL IV ONE (08:31)
[2024-08-31] MEDS ORDERED: NA CHLORIDE 0.9% 1,000 ML ONE (08:31)
[2024-08-31] MEDS ORDERED: ONDANSETRON 4 MG/2 ML VIAL ONE (08:31)
[2024-08-31 08:43] LABS: Absolute Eosinophils 0.1 K/uL (0-0.5); Absolute Lymphocytes (CBC) 1.2 K/uL (0.7-4.9); Absolute Monocytes 0.6 K/uL (0.1-1.3); Absolute Neutrophil 6.8 K/uL (1.8-8.0); Basophils % 0.3 % (0-1.3); MPV 7.9 fL (7.6-11.3)
[2024-08-31 08:45] LABS: Eosinophils % 1.1 % (0-4.4); Hematocrit 40.4 % (39.6-49.0); Lymphocytes % 14.1 % (15.3-44.8); MCH 29.8 pg (27.0-35.0); MCHC 34.6 g/dL (32.0-36.0); MCV 86.2 fL (80-100); Monocytes % 6.4 % (3.3-12.3); Neutrophils % 78.1 % (41.7-73.7); Platelets 225 thou/uL (152-406); RBC Red Blood Cell Count 4.69 M/uL (4.33-5.43); Red Cell Distribution Width 13.8 % (12.1-15.2)
--- NOTE | 2024-08-31 08:45 | RAD REPORT ---
EXAM: Right upper quadrant ultrasound. CLINICAL HISTORY: COMPARISON: None FINDINGS: A gallstone is not seen. Gallbladder wall not thickened. Biliary tree normal caliber IMPRESSION: No significant abnormalities displayed
--- NOTE | 2024-08-31 08:52 | RAD REPORT ---
EXAMINATION: CT ABDOMEN AND PELVIS WITH CONTRAST CLINICAL INDICATION: Abdominal pain TECHNIQUE: CT abdomen and pelvis was performed, after the administration of 100 cc Isovue-300.. Sagit will and coronal reconstructions were obtained. One or more of the following dose reduction techniques were used: Automated exposure control, adjustment of the mA and/or kV according to patien t size, and/or iterative reconstruction. Unless otherwise specified, incidental findings do not require dedicated imaging follow-up. [id number]. Oral contrast was not given which limits evaluation of b owel and appendix. COMPARISON 2020 FINDINGS: Mild fatty liver Spleen measures 13 cm. The pancreas, adrenals and left kidney appear unremarkable 2 mm calculus right kidney. No hydronephrosis There is no evidence of diverticulitis. Normal appendix. Small bilateral inguinal hernias containing fat. Small umbilical hernia : IMPRESSION: Small right renal calculus without hydronephrosis Mild splenomegaly Mild fatty liver
[2024-08-31 09:08] LABS: Albumin 3.6 g/dL (3.4-5.0); Anion Gap 7.1 mEq/L (5.0-15.0); Bilirubin Total 0.6 mg/dL (0.2-1.0); Globulin 3.6 g/dL (2.3-3.5); Potassium 4.1 mEq/L (3.5-5.1); Protein, Total 7.2 g/dL (6.4-8.2)
--- NOTE | 2024-08-31 09:39 | EDPHYS ---
Physician Documentation [facility] Name: Donnie Hughes Age: 29 yrs Sex: Male : 1995 Arrival Date: 08/31/2024 Time: 07:51 Bed 15 Private MD: ED Physician Roman Moon HPI: 08/31 09:35 This 29 yrs old Male presents to ER via Ambulatory with complaints of abdominal pain, rn Vomiting. 09:35 The patient presents to the emergency department with nausea, vomiting, abdominal pain. rn Onset: The symptoms/episode began/occurred 2.5 month(s) ago. Possible causes: unknown. Associated signs and symptoms: Pertinent positives: abdominal pain, nausea, vomiting, Pertinent negatives: fever, GI bleeding. Severity of symptoms: At their worst the symptoms were moderate in the emergency department the symptoms are unchanged. The patient has not experienced similar symptoms in the past. Patient reports 2.5 months of vomiting in the morning, does not throw up later in the day. No chronic GI issues per patient. No fever or blood in stool. No sick contacts.. Historical: - Allergies: 07:58 Clarithromycin; ll1 07:58 Amoxicillin; ll1 07:58 Augmentin (Vomiting); ll1 07:58 Biaxin (Vomiting); ll1 - PMHx: 07:58 Depression; ll1 - Immunization history:: Adult Immunizations up to date. - Infectious Disease History:: Denies. - Social history:: Smoking status: Patient denies any tobacco usage or history of. - Family history:: not pertinent. - Hospitalizations: : No recent hospitalization is reported. ROS: 09:35 Constitutional: Negative for fever, chills, and weight loss, Cardiovascular: Negative rn for chest pain, palpitations, and edema, Respiratory: Negative for shortness of breath, cough, wheezing, and pleuritic chest pain, Abdomen/GI: Positive for abdominal pain with nausea and vomiting MS/Extremity: Negative for injury and deformity, Neuro: Negative for headache, weakness, numbness, tingling, and seizure, Exam: 09:35 Constitutional: This is a well developed, well nourished patient who is awake, alert, rn and in no acute distress. Cardiovascular: Regular rate and rhythm. No pulse deficits. Respiratory: No increased work of breathing, no retractions or nasal flaring. Abdomen/GI: Soft, mild epigastric tenderness. No rebound or guarding MS/ Extremity: Pulses equal, no cyanosis. Neurovascular intact. Full, normal range of motion. Equal circumference. Neuro: Awake and alert, GCS 15 Vital Signs: 08:07 BP 136 / 88; Pulse 76; Resp 20; Temp 97.2; Pulse Ox 95% on R/A; Weight 149.69 kg; ll1 Height 5 ft. 9 in. ; Pain 8/10; 09:41 BP 133 / 80; Pulse 74; Resp 17; Pulse Ox 99% on R/A; rs5 08:07 Body Mass Index 48.73 (149.69 kg, 175.26 cm) ll1 08:07 Pain Scale: Adult ll1 MDM: 07:55 Patient medically screened. rn 09:35 Differential diagnosis: Nonspecific abd pain, gastritis, cholecystitis, pancreatitis, rn appendicitis, diverticulitis, viral gastroenteritis, gastroenteritis, Gastric ulcer, peptic ulcer disease. Data reviewed: vital signs, nurses notes, lab test result(s), radiologic studies, CT scan, and as a result, I will discharge patient. Counseling: I had a detailed discussion with the patient and/or guardian regarding the historical points, exam findings, and any diagnostic results supporting the discharge/admit diagnosis, lab results, radiology results, the need for outpatient follow up, to return to the emergency department if symptoms worsen or persist or if there are any questions or concerns that arise at home. Special discussion: Based on the patient's Hx, exam, and Dx evaluation, there is no indication for emergent surgery or inpatient Tx. It is understood by the patient/guardian that if the Sx's persist or worsen they need to return immediately for re-evaluation. I discussed with the patient/guardian in detail that at this point there is no indication for admission to the hospital. It is understood, however, that if the symptoms persist or worsen the patient needs to return immediately for re-evaluation. Based on the history and exam findings, there is no indication for further emergent testing or inpatient evaluation. I discussed with the patient/guardian the need to see the maintenance mechanic telephone for further evaluation of the symptoms. 08/31 08:13 Order name: CBC with Diff; Complete Time: 09:12 rn 08/31 08:13 Order name: CMP; Complete Time: : rn 08/31 08:13 Order name: Lipase; Complete Time: 09:12 rn 08/31 08:13 Order name: CT Abd/Pelvis - IV Contrast Only; Complete Time: 09:12 rn 08/31 08:13 Order name: US Abdomen Limited; Complete Time: 09:12 rn 08/31 08:13 Order name: IV Saline Lock; Complete Time: 08:41 rn 08/31 08:13 Order name: Labs collected and sent; Complete Time: 08:41 rn Administered Medications: 08:41 Drug: NS 0.9% IV 1000 ml IV at 1 bolus Per protocol; 1000 mL bolus Route: IV; Rate: 1 rs5 bolus; Site: left antecubital; 09:41 Follow up: Response: No adverse reaction; IV Status: Completed infusion; IV Intake: rs5 1000ml 08:41 Drug: Famotidine IVP 20 mg IVP once; dilute with 10 mL 0.9% NaCl; give over 2 minutes rs5 Route: IVP; Site: left antecubital; 09:01 Follow up: Response: No adverse reaction rs5 08:41 Drug: Ondansetron IVP 4 mg IVP once; over 2 minutes Route: IVP; Site: left antecubital; rs5 09:04 Follow up: Response: No adverse reaction; Nausea is decreased rs5 Disposition Summary: 08/31/24 09:38 Discharge Ordered Notes: Location: Home rn Problem: new rn Symptoms: have improved rn Condition: Stable rn Diagnosis - Upper abdominal pain, unspecified rn - Nausea with vomiting, unspecified rn Followup: rn - With: Jean Carlos Sanz MD - When: As needed - Reason: Recheck today's complaints, Re-evaluation by your physician Discharge Instructions: - Discharge Summary Sheet rn - Abdominal Pain, Adult rn - Nausea and Vomiting, Adult rn - Pain Without a Known Cause rn - Fatty Liver Disease rn Forms: - Medication Reconciliation Form rn - 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 EDMS EDMS 08:13 Abdomen Limited+US.RAD.BRZ ordered. EDMS EDMS
--- NOTE | 2024-08-31 09:39 | ER ---
Nurse's Notes [facility] Name: Donnie Hughes Age: 29 yrs Sex: Male : 1995 Arrival Date: 08/31/2024 Time: 07:51 Bed 15 Private MD: Diagnosis: Upper abdominal pain, unspecified;Nausea with vomiting, unspecified Presentation: 08/31 08:07 Chief complaint: Patient states: Abdominal pains with N/V for 2 months. +body aches and ll1 rash to L arm area. Cough also. Coronavirus screen: Client denies travel out of the [place] in the last 14 days. cough unrelated to allergies, fatigue, muscle pain, nausea, vomiting. Client presents with at least one sign or symptom that may indicate coronavirus-19. Standard/surgical mask placed on the client. Ebola Screen: Patient denies travel to an Ebola-affected area in the 21 days before illness onset. Initial Sepsis Screen: Does the patient meet any 2 criteria? No. Patient's initial sepsis screen is negative. Does the patient have a suspected source of infection? No. Patient's initial sepsis screen is negative. Risk Assessment: Do you want to hurt yourself or someone else? Patient reports no desire to harm self or others. Onset of symptoms was July 01, 2024. 08:07 Method Of Arrival: Ambulatory ll1 08:07 Acuity: QUE 3 ll1 Historical: - Allergies: 07:58 Clarithromycin; ll1 07:58 Amoxicillin; ll1 07:58 Augmentin (Vomiting); ll1 07:58 Biaxin (Vomiting); ll1 - PMHx: 07:58 Depression; ll1 - Immunization history:: Adult Immunizations up to date. - Infectious Disease History:: Denies. - Social history:: Smoking status: Patient denies any tobacco usage or history of. - Family history:: not pertinent. - Hospitalizations: : No recent hospitalization is reported. Screenin:00 [facility] ED Fall Risk Assessment (Adult) History of falling in the last 3 months, rs5 including since admission No falls in past 3 months (0 pts) Confusion or Disorientation No (0 pts) Intoxicated or Sedated No (0 pts) Impaired Gait No (0 pts) Mobility Assist Device Used No (0 pt) Altered Elimination No (0 pt) Score/Fall Risk Level 0 - 2 = Low Risk Oriented to surroundings, Maintained a safe environment. Abuse screen: Denies threats or abuse. Nutritional screening: No deficits noted. Tuberculosis screening: No symptoms or risk factors identified. Assessment: 08:00 General: Appears in no apparent distress. uncomfortable, Behavior is cooperative. Pain: rs5 Complains of pain in generalized body aches Pain currently is 4 out of 10 on a pain scale. Quality of pain is described as aching, Is continuous. Neuro: Level of Consciousness is awake, alert, obeys commands, Oriented to person, place, time, situation. Cardiovascular: Patient's skin is warm and dry. Respiratory: Airway is patent Respiratory effort is even, unlabored, Respiratory pattern is regular, symmetrical. GI: Abdomen is round non-distended, Abd is soft and non tender X 4 quads. Reports nausea. : No signs and/or symptoms were reported regarding the genitourinary system. EENT: No signs and/or symptoms were reported regarding the EENT system. Derm: Skin is intact, Skin is pink, warm \T\ dry. multiple small scabs noted to pt's left upper arm, no redness or bleeding noted. Musculoskeletal: Range of motion: intact in all extremities. 08:46 Reassessment: Patient and/or family updated on plan of care and expected duration. Pain rs5 level reassessed. Patient is alert, oriented x 3, equal unlabored respirations, skin warm/dry/pink. 09:40 Reassessment: Patient and/or family updated on plan of care and expected duration. Pain rs5 level reassessed. Patient is alert, oriented x 3, equal unlabored respirations, skin warm/dry/pink. Patient states feeling better. Vital Signs: 08:07 BP 136 / 88; Pulse 76; Resp 20; Temp 97.2; Pulse Ox 95% on R/A; Weight 149.69 kg; ll1 Height 5 ft. 9 in. ; Pain 8/10; 09:41 BP 133 / 80; Pulse 74; Resp 17; Pulse Ox 99% on R/A; rs5 08:07 Body Mass Index 48.73 (149.69 kg, 175.26 cm) ll1 08:07 Pain Scale: Adult ll1 ED Course: 07:54 Patient arrived in ED. mg5 07:55 Roman Moon MD is Attending Physician. rn 07:57 Joshua Leo, RN is Primary Nurse. rs5 07:58 Arm band placed on Patient placed in an exam room, on a stretcher. ll1 08:08 Triage completed. ll1 08:41 US Abdomen Limited In Process Unspecified. EDMS 08:43 CT Abd/Pelvis - IV Contrast Only In Process Unspecified. EDMS 08:46 Patient has correct armband on for positive identification. Placed in gown. Bed in low rs5 position. Call light in reach. Side rails up X2. 08:46 No provider procedures requiring assistance completed. rs5 09:37 Jean Carlos Sanz MD is Referral Physician. rn 09:50 IV discontinued, intact, bleeding controlled, No redness/swelling at site. Pressure rs5 dressing applied. 10:02 Provided Education on: discharge instructions . rs5 Administered Medications: 08:41 Drug: NS 0.9% IV 1000 ml IV at 1 bolus Per protocol; 1000 mL bolus Route: IV; Rate: 1 rs5 bolus; Site: left antecubital; 09:41 Follow up: Response: No adverse reaction; IV Status: Completed infusion; IV Intake: rs5 1000ml 08:41 Drug: Famotidine IVP 20 mg IVP once; dilute with 10 mL 0.9% NaCl; give over 2 minutes rs5 Route: IVP; Site: left antecubital; 09:01 Follow up: Response: No adverse reaction rs5 08:41 Drug: Ondansetron IVP 4 mg IVP once; over 2 minutes Route: IVP; Site: left antecubital; rs5 09:04 Follow up: Response: No adverse reaction; Nausea is decreased rs5 Medication: 09:41 VIS not applicable for this client. rs5 Intake: 09:41 IV: 1000ml; Total: 1000ml. rs5 Outcome: 09:38 Discharge ordered by . rn 09:50 Discharged to home ambulatory, rs5 09:50 Condition: stable rs5 09:50 Discharge instructions given to patient, family, Instructed on discharge instructions, follow up and referral plans. medication usage, Demonstrated understanding of instructions, follow-up care, medications, Prescriptions given X 2, 09:51 Patient left the ED. rs5 Signatures: Dispatcher [employer] EDMS Roman Moon MD MD rn Lewis, Lynsay, RN RN 1 Joshua Leo, RN RN rs5 Michelle Kowalski mg5 Corrections: (The following items were deleted from the chart) 09:41 08:00 Derm: Skin is intact, Skin is pink, warm \T\ dry. rs5 rs5
[2024-08-31 22:16] VITALS: TEMP 97.2
[2024-08-31 22:18] VITALS: BP 133/80; O2SAT 99
== END 2024-08-31 09:51 | disposition home or self-care (01) ==
LOC: ER 07:51
DX: R10.10 Upper abdominal pain, unspecified (principal); R11.2 Nausea with vomiting, unspecified; F32.A Depression, unspecified; Z88.1 Allergy status to other antibiotic agents; Z88.3 Allergy status to other anti-infective agents
CPT/HCPCS: 96361; 85025; 36415; 83690; 80053; 74177; 76705; 96375; 96374; 99284; Q9967; J2405; J7030

== ENCOUNTER 2024-11-08 07:16 | Emergency (ER) | payer OTHER ==
--- OUTSIDE RECORDS SUMMARY | 2024-11-08 07:20 | XMS REPORT | Continuity of Care Document ---
Author Name Unknown Address [address] [facility] [address] [place] [address] [facility] Address [address] [facility] [address] [place] [address] Care Team Providers Care Waiter And Cashier Name Role Phone Georgi Grijalva MD Primary Care Physician + [phone] AMAURY NUNN Attending Clinician Unavaila GEORGI Mcconnell Attending Clinician Unavailable ROSENDO ELIZABETH Attending Clinician Unavailable Doctor Unassigned, Colt Attending Clinician U Georgi Thomas MD Attending Clinician [phone] ROB BROOKS Attending Clinician Unavailab ROB Verdugo Attending Clinician Unavailab Carline Griffith Attending Clinician [phone] JACQUI SU K.HColleen Attending Clinician UnavailCARLINE Davis Attending Clinician Unavailable Only, Adc Test Attending Clinician Unavailable Jacqui Su MD K.H. Attending Clinician + [phone], Adc Lab Attending Clinician Unavailable AJCQUI SU K.HColleen Admitting Clinician Unavailchucho melgoza Payers Payer Name Policy Type Policy Number Effective Date Expirati on Date Source [employer] II [id number] 2021 00:00:00 Problems Condition Name Condition Details Condition Category Status Onset Date Resolution Date Last Treatment Date Treating Clinician Comments Source Impotence of organic origin Impotence of organic origin Disease Active 2021-11 00:00: 00 [facility] Low testostero ne in male Low testostero ne in male Disease Active 2022-1 1-15 00:00: 00 [facility] Gastroesop hageal reflux disease without esophagiti s Gastroesop hageal reflux disease without esophagiti s Disease Active 8- 00:00: 00 [facility] Atypical chest pain Atypical chest pain Disease Active 8- 00:00: 00 [facility] Essential hypertensi on Essential hypertensi on Disease Active 8- 00:00: 00 [facility] Chronic midline low back pain without sciatica Chronic midline low back pain without sciatica Disease Active 8- 00:00: 00 [facility] Pain in joint involving multiple sites Pain in joint involving multiple sites Disease Active 8 00:00: 00 [facility] Moderate recurrent major depression Moderate recurrent major depression Disease Active 8 00:00: 00 [facility] Severe obesity (BMI >= 40) Severe obesity (BMI >= 40) Disease Active 07-01 00:00: 00 [facility] Post-COVID syndrome Post-COVID syndrome Disease Active 6-14 00:00: 00 [facility] Post-COVID syndrome Post-COVID syndrome Disease Active 614 00:00: 00 [facility] Anxiety, generalize d Anxiety, generalize d Disease Active 18 00:00: 00 [facility] Primary insomnia Primary insomnia Disease Active 18 00:00: 00 [facility] Panic attack as reaction to stress Panic attack as reaction to stress Disease Active 18 00:00: 00 [facility] Suicidal ideation Suicidal ideation Disease Active 18 00:00: 00 [facility] Bilateral chronic knee pain Bilateral chronic knee pain Disease Active 18 00:00: 00 [facility] Allergies, Adverse Reactions, Alerts Allergy Name Allergy Type Status Severity Reaction(s) Onset Date Inactive Date Treating Clinician Comments Source Amoxicil leandro Propensi ty to adverse reaction s Active Nausea and/or Vomiting 04-08 00:00: 00 [facility] Clarithr omycin Propensi ty to adverse reaction s Active Nausea and/or Vomiting 04-08 00:00: 00 [facility] AMOXICIL LEANDRO DRUG INGREDI Active Diarrhea 04-08 00:00: 00 [facility] CLARITHR OMYCIN DRUG INGREDI Active Diarrhea 04-08 00:00: 00 [facility] Social History Social Habit Start Date Stop Date Quantity Comments Source Exposure to SARS-CoV-2 (event) 2022-11-22 00:00:00 2022-12-02 12:06:[address] [facility] Tobacco use and exposure 2022-12-02 00:00:00 2022-12-02 00:00:00 Smokeless tobacco non-user [facility] Sex Assigned At 1995 00:00:00 1995 00:00:[address] [facility] Smoking Status Start Date Stop Date Source Tobacco smoking consumption unknown [facility] Never smoked tobacco [facility] Medications Ordered Medication Name Filled Medication Name Start Date Stop Date Current Medication? Ordering Clinician Indication Dosage Frequency Signature (SIG) Comments Components Source tadalafiL (CIALIS) 5 mg tablet 12-02 00:00: 00 08-30 04:59 :00 No [id number] 5mg Take 1 tablet by mouth in the morning for [address] [facility] gabapentin 100 mg capsule 2021-11 00:00: 00 Yes [id number] 100mg Take 1 capsule by mouth in the morning and 1 capsule at noon and 1 capsule in the evening. [facility] traZODone 50 mg tablet 2021-11 00:00: 00 Yes [id number] 50mg Take 1-2 tablets by mouth at bedtime as needed for Insomnia. [facility] triamcinolo ne acetonide 0.1 % cream 2021-11 00:00: 00 Yes [id number] Apply to area(s) 2 (two) times daily. [facility] hydrOXYzine 50 mg tablet 2021-11 00:00: 00 Yes [id number] 50mg Take 1 tablet by mouth 3 (three) times daily as needed for Itching. [facility] methylPREDN ISolone (MEDROL, PATY,) 4 mg tablets 2021-11 00:00: 00 Yes [id number] Take by mouth SEE-INSTRU CTIONS. follow package directions [facility] losartan 50 mg tablet 2021-11 00:00: 00 Yes [id number] 50mg Take 1 tablet by mouth in the morning. [facility] losartan 25 mg tablet 07-25 00:00: 00 09-08 00:00 :00 No [id number] 25mg Take 1 tablet by mouth in the morning. [facility] omeprazole 40 mg capsule 07-22 00:00: 00 Yes [id number] 40mg Take 1 capsule by mouth in the morning. [facility] Lidocaine 5 % cream 07-01 00:00: 00 Yes [id number] Apply to area(s) 2 (two) times daily as needed for Pain (scale 4-6). Apply 5g to affected areas BID PRN [facility] doxepin 10 mg capsule 07-01 00:00: 00 Yes [id number] 10mg Take 1 capsule by mouth at bedtime. [facility] DULoxetine (CYMBALTA) 20 mg capsule 07-01 00:00: 00 Yes [id number] 20mg Take 1 capsule by mouth in the morning. [facility] tiZANidine 2 mg tablet 07-01 00:00: 00 Yes [id number] 2mg Take 1 tablet by mouth every 8 (eight) hours as needed (muscle spasms). [facility] traZODone 50 mg tablet 07-01 00:00: 00 10-14 00:00 :00 No [id number] 50mg Take 1 tablet by mouth at bedtime. [facility] lisinopriL 5 mg tablet 07-01 00:00: 00 07-25 00:00 :00 No [id number] 5mg Take 1 tablet by mouth in the morning. [facility] Cholecalcif rose marie, Vitamin D3, (VITAMIN D3) 125 mcg (5,000 unit) tablet 05-13 00:00: 00 Yes [id number] 5000U Take 1 tablet by mouth daily. [facility] ascorbic acid, vitamin C, (VITAMIN C) 500 mg tablet 05-13 00:00: 00 Yes [id number] 500mg Take 1 tablet by mouth daily. [facility] Zinc Gluconate 100 mg Tab 05-13 00:00: 00 Yes [id number] 1{tbl} Take 1 tablet by mouth daily. [facility] Magnesium 250 mg Tab 05-13 00:00: 00 Yes [id number] 1{tbl} Take 1 tablet by mouth daily. [facility] Diclofenac Sodium (VOLTAREN) 1 % gel 04-08 00:00: 00 Yes [id number] Apply to area(s) 4 (four) times daily. Apply [address] [facility] acetaminoph en 650 mg CR tablet 04-08 00:00: 00 Yes [id number] 650mg Take 1 tablet by mouth every 8 (eight) hours as needed for Pain or Fever. [facility] Vital Signs Vital Name Observation Time Observation Value Comments S ource Systolic blood pressure 2022-10-14 22:08:00 135 mm[Hg] [facility] Diastolic blood pressure 2022-10-14 22:08:00 88 mm[Hg] [facility] Heart rate 2022-10-14 22:08:00 73 /min [facility] Body temperature 2022-10-14 22:08:[address] [facility] Respiratory rate 2022-10-14 22:08:00 18 /min [facility] Body height 2022-10-14 22:08:00 175.3 cm [facility] Body weight 2022-10-14 22:08:00 151.819 kg [facility] BMI 2022-10-14 22:08:00 49.43 kg/m2 [facility] Oxygen saturation in Arterial blood by Pulse oximetry 2022-10-14 22:08:00 97 /min [facility] Systolic blood pressure 2022-09-24 18:57:00 133 mm[Hg] [facility] Diastolic blood pressure 2022-09-24 18:57:00 89 mm[Hg] [facility] Heart rate 2022-09-24 18:57:00 68 /min Un[facility] Body temperature 2022-09-24 18:57:[address] [facility] Respiratory rate 2022-09-24 18:57:00 18 /min [facility] Body height 2022-09-24 18:57:00 175.3 cm [facility] Body weight 2022-09-24 18:57:00 151.002 kg [facility] BMI 2022-09-24 18:57:00 49.16 kg/m2 [facility] Oxygen saturation in Arterial blood by Pulse oximetry 2022-09-24 18:57:00 95 /min [facility] Systolic blood pressure 2022-09-08 19:57:00 133 mm[Hg] [facility] Diastolic blood pressure 2022-09-08 19:57:00 74 mm[Hg] [facility] Heart rate 2022-09-08 19:57:00 82 /min Unive [facility] Body temperature 2022-09-08 19:57:[address] [facility] Body weight 2022-09-08 19:57:00 150.458 kg [facility] BMI 2022-09-08 19:57:00 48.98 kg/m2 [facility] Oxygen saturation in Arterial blood by Pulse oximetry 2022-09-08 19:57:00 94 /min [facility] Systolic blood pressure 2022-07-25 14:27:00 148 mm[Hg] [facility] Diastolic blood pressure 2022-07-25 14:27:00 84 mm[Hg] [facility] Heart rate 2022-07-25 14:27:00 70 /min [facility] Body temperature 2022-07-25 14:27:[address] [facility] Respiratory rate 2022-07-25 14:27:00 16 /min [facility] Body height 2022-07-25 14:27:00 175.3 cm [facility] Body weight 2022-07-25 14:27:00 148.598 kg [facility] BMI 2022-07-25 14:27:00 48.38 kg/m2 [facility] Oxygen saturation in Arterial blood by Pulse oximetry 2022-07-25 14:27:00 98 /min [place] [facility] Procedures Procedure Date / Time Performed Performing Clinicia n Source PATIENT QUESTIONNAIRE 2022-12-02 06:01:00 Doctor Unassigned, Colt [facility] Encounters Start Date/Time End Date/Time Encounter Type Admission Type Attending Clinicians Care Facility Care Department Encounter ID Source 2023-02-03 13:40:00 2023-02-03 13:40:00 Outpatient GEORGI MUÑOZ [facility] [id number] [facility] 2022-12-02 13:00:00 2022-12-02 13:23:00 Outpatient ROSENDO CLARK [facility] [id number] [facility] 2022-12-02 00:00:00 2022-12-02 00:00:00 Orders Only Doctor Unassigned, Colt [facility] 1.2.840.114 350.1.13.10 4.2.7.2.[id number] [facility] 2022-10-28 10:40:00 2022-10-28 10:40:00 Outpatient GEORGI MUÑOZ [facility] [id number] [facility] 2022-10-28 10:40:00 2022-10-28 10:40:00 Outpatient GEORGI MUÑOZ [facility] [id number] [facility] 2022-10-14 15:40:00 2022-10-14 17:04:14 Outpatient GEORGI MUÑOZ [facility] [id number] [facility] 2022-10-14 15:40:00 2022-10-14 17:04:14 Office Visit Georgi Grijalva [facility] 1.2.840.114 350.1.13.10 4.2.7.2.[id number] [facility] 2022-09-24 13:30:00 2022-09-24 14:36:58 Outpatient R TODD FEDERICOZAYDA WELCHDEBORAH [facility] [id number] [facility] 2022-09-24 13:30:00 2022-09-24 14:36:58 [facility] 1.2.840.114 350.1.13.10 4.2.7.2.[id number] [facility] 2022-09-08 15:00:00 2022-09-08 15:40:00 Office Visit Carline Juan [facility] 1.2.840.114 350.1.13.10 4.2.7.2.[id number] [facility] 2022-09-08 15:30:00 2022-09-08 15:30:00 Outpatient JACQUI ROBISON [facility] [id number] [facility] 2022-09-08 15:00:00 2022-09-08 15:00:00 Outpatient R CARLINE JUAN [facility] [id number] [facility] 2022-08-19 09:50:35 2022-08-19 23:59:00 Outpatient JACQUI ROBISON [facility] [id number] [facility] 2022-08-19 10:00:00 2022-08-19 10:00:00 Outpatient JACQUI ROBISON [facility] [id number] [facility] 2022-08-18 09:30:00 2022-08-18 09:45:00 Laboratory Only Only, Adc Test Jacqui Su [facility] 1.840.114 350.1.13.10 4.2.7.2.[id number] [facility] 2022-08-18 09:30:00 2022-08-18 09:30:00 Outpatient R JACQUI SU [facility] [id number] [facility] 2022-07-29 00:00:00 2022-07-29 00:00:00 Orders Only Doctor Unassigned, Colt [facility] 1.840.114 350.1.13.10 4.2.7.2.[id number] [facility] 2022-07-25 09:00:00 2022-07-25 10:06:37 Outpatient R JACQUI SU [facility] [id number] [facility] 2022-07-25 09:00:00 2022-07-25 10:06:37 [facility] 1.840.114 350.1.13.10 4.2.7.2.[id number] [facility] 2022-07-25 09:00:00 2022-07-25 10:06:37 Outpatient R JACQUI SU [facility] [id number] [facility] 2022-07-22 12:39:20 2022-07-22 23:59:00 Outpatient R GEORGI GRIJALVA [facility] [id number] [facility] 2022-07-22 12:00:00 2022-07-22 23:59:00 Hospital Encounter Georgi Grijalva [facility] 1.840.114 350.1.13.10 4.2.7.2.[id number] [facility] 2022-07-22 12:39:20 2022-07-22 12:39:20 Outpatient R GEORGI GRIJALVA [facility] [id number] [facility] 2022-07-22 10:40:00 2022-07-22 11:26:21 Office Visit Georgi Grijalva [facility] 1.2.840.114 350.1.13.10 4.2.7.2.[id number] [facility] 2022-07-22 10:40:00 2022-07-22 11:26:21 Outpatient R SHAYGEORGI PLATA [facility] [id number] [facility] 2022-07-22 00:00:00 2022-07-22 00:00:00 Orders Only Doctor Unassigned, Colt [facility] 1.2.840.114 350.1.13.10 4.2.7.2.[id number] [facility] 2022-07-01 10:20:00 2022-07-01 11:05:34 Outpatient R SHAYGEORGI PLATA [facility] [id number] [facility] 2022-07-01 10:20:00 2022-07-01 11:05:34 Office Visit Georgi Grijalva [facility] 1.2.840.114 350.1.13.10 4.2.7.2.[id number] [facility] 2022-07-01 10:20:00 2022-07-01 11:05:34 Outpatient R SHAYNARCISOGEORGI DEL CID [facility] [id number] [facility] 2022-05-13 15:20:00 2022-05-13 15:36:28 Outpatient R SHAYNARCISOAMRITHARRIETT GEORGI [facility] [id number] [facility] 2022-05-13 15:20:00 2022-05-13 15:36:28 Telemedici ne Visit [place], Peter [facility] 1.2.840.114 350.1.13.10 4.2.7.2.[id number] [facility] 2022-05-13 15:20:00 2022-05-13 15:20:00 Outpatient R GEORGI GRIJALVA [facility] [id number] [facility] 2022-05-02 00:00:00 2022-05-02 00:00:00 Telephone Georgi Grijalva [facility] 1.2.840.114 350.1.13.10 4.2.7.2.[id number] [facility] 2022-04-16 08:20:00 2022-04-16 09:31:13 Outpatient R GEORGI GRIJALVA [facility] [id number] [facility] 2022-04-16 08:20:00 2022-04-16 09:31:13 Office Visit Georgi Grijalva [facility] 1.2.840.114 350.1.13.10 4.2.7.2.[id number] [facility] 2022-04-16 08:20:00 2022-04-16 08:20:00 Outpatient R GEORGI GRIJALVA [facility] [id number] [facility] 2022-04-11 00:00:00 2022-04-11 00:00:00 Telephone Georgi Grijalva [facility] 1.2.840.114 350.1.13.10 4.2.7.2.[id number] 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 2022-04-08 15:30:00 2022-04-08 15:30:00 Outpatient R GEORGI GRIJALVA [facility] [id number] [facility] 2022-04-08 14:00:00 2022-04-08 15:18:39 Office Visit Georgi Grijalva [facility] 1.2.840.114 350.1.13.10 4.2.7.2.[id number] [facility] 2022-04-08 14:00:00 2022-04-08 15:18:39 Outpatient R GEORGI GRIJALVA [facility] [id number] [facility]
[2024-11-08] MEDS ORDERED: predniSONE 20 MG TAB ONE (07:48)
[2024-11-08 08:48] LABS: Absolute Eosinophils 0.1 K/uL (0-0.5); Absolute Monocytes 0.6 K/uL (0.1-1.3); Absolute Neutrophil 6.4 K/uL (1.8-8.0); Basophils % 0.2 % (0-1.3); Hematocrit 44.3 % (39.6-49.0); Hemoglobin 15.1 g/dL (13.6-17.9); Lymphocytes % 12.6 % (15.3-44.8); MCH 29.4 pg (27.0-35.0); MCV 86.6 fL (80-100); MPV 8.2 fL (7.6-11.3); Monocytes % 6.9 % (3.3-12.3); Neutrophils % 79.3 % (41.7-73.7); Nucleated Red Blood Cells % 0.1 % (0-0); Platelets 244 thou/uL (152-406); RBC Red Blood Cell Count 5.12 M/uL (4.33-5.43); Red Cell Distribution Width 13.5 % (12.1-15.2)
[2024-11-08 08:49] LABS: Specific Gravity < 1.005 (1.005-1.030); Urine Bilirubin NEGATIVE (Negative); Urine Blood Negative (Negative); Urine Clarity Clear (Clear); Urine Color Colorless (Yellow); Urine Glucose NEGATIVE (Negative); Urine Ketones NEGATIVE (Negative); Urine Microscopic Reflex YN NO UMIC; Urine Nitrite NEGATIVE (Negative); Urine Protein NEGATIVE (Negative); Urine Urobilinogen Normal (Normal); Urine pH 6.5 (5.0-7.0)
[2024-11-08 09:00] LABS: Anion Gap 6.1 mEq/L (5.0-15.0); Potassium 4.1 mEq/L (3.5-5.1)
--- NOTE | 2024-11-08 09:51 | RAD REPORT ---
EXAMINATION: CT Abdomen Pelvis Wo Contrast CLINICAL INDICATION: Male, 29 years old. right flank imani TECHNIQUE: CT abdomen and pelvis was performed, without IV contrast, as per department protocol. Axia l, sagittal and coronal reconstructions were obtained. One or more of the following dose reduction techniques were used: Automated exposure control, adjustment of the mA and kV according to the patien t size, and iterative reconstruction. Unless otherwise specified, incidental findings do not require dedicated imaging follow-up. COMPARISON: No prior exam. FINDINGS: The lack of intravenous contrast limits the sensitivity of this exam for evaluation of solid visceral organs, vascular structures, and retroperitoneum. LOWER CHEST: The visualized lung bases are clear. LIVER: Normal in size and contour. No focal lesion. BILIARY SYSTEM: No suspicious abnormalities. SPLEEN: Normal size. No focal lesion. PANCREAS: No mass, ductal dilation, or nicole-pancreatic fluid. ADRENALS: Normal; no mass. KIDNEYS AND URETERS: Normal size and contour. No hydronephrosis. URINARY BLADDER: Suboptimally distended limiting evaluation. GASTROINTESTINAL TRACT: No evidence of bowel obstruction, significant free fluid, free air or abscess . APPENDIX: Normal appendix. LYMPH NODES: No lymphadenopathy. MUSCULOSKELETAL: No acute or suspicious osseous abnormality. ADDITIONAL FINDINGS: None. IMPRESSION: No acute or concerning abnormalities in the abdomen or pelvis, with evaluation limited by lack of IV contrast.
--- NOTE | 2024-11-08 10:08 | EDPHYS ---
Physician Documentation [facility] Name: Donnie Hughes Age: 29 yrs Sex: Male : 1995 Arrival Date: 11/08/2024 Time: 07:16 Bed 19 Private MD: ED Physician Robinson Schaffer HPI: 11/08 10:07 This 29 yrs old Male presents to ER via Ambulatory with complaints of Low Back Pain, ms3 Possible Kidney Stone. 10:07 Donnie Hughes is a 29-year-old male who presents to the Emergency Department with ms3 right flank pain that began this morning. He describes the pain as wrapping around but not completely encircling his torso. Donnie rates the pain an 8 on a scale of 1 to 10. He reports that using a heating pad and taking a shower did not alleviate his pain. He has a known history of a kidney stone in his right kidney, as previously informed by Dr. Moon. He suspects that the current pain might be due to the kidney stone moving. Additionally, he mentions increased urination over the past couple of days.. Historical: - Allergies: 07:29 Amoxicillin; ss 07:29 Augmentin (Vomiting); ss 07:29 Biaxin (Vomiting); ss 07:29 Clarithromycin; ss - PMHx: 07:29 Depression; ss - PSHx: 07:29 None; ss - Immunization history:: Client reports receiving the 2nd dose of the Covid vaccine. - Infectious Disease History:: Denies. - Social history:: Smoking status: Patient denies any tobacco usage or history of. ROS: 10:07 Constitutional: Negative for fever, and chills. Cardiovascular: Negative for chest ms3 pain, and palpitations. Respiratory: Negative for shortness of breath, cough, wheezing, and pleuritic chest pain, 10:07 MS/Extremity: Negative for injury and deformity, Skin: Negative for injury, rash, and discoloration, 10:07 Abdomen/GI: Positive for Right flank pain, Exam: 10:07 Constitutional: This is a well developed, well nourished patient who is awake, alert, ms3 and in no acute distress. Chest/axilla: Normal chest wall appearance and motion. Nontender with no deformity. Cardiovascular: Regular rate and rhythm with a normal S1 and S2. No gallops, murmurs, or rubs. Normal PMI, no JVD. No pulse deficits. Respiratory: Lungs have equal breath sounds bilaterally, clear to auscultation and percussion. No rales, rhonchi or wheezes noted. No increased work of breathing, no retractions or nasal flaring. Abdomen/GI: Soft, non-tender, with normal bowel sounds. No distension or tympany. No guarding or rebound. No evidence of tenderness throughout. Skin: Warm, dry with normal turgor. Normal color with no rashes, no lesions, and no evidence of cellulitis. 10:07 Back: pain, that is mild, ROM is normal, normal spinal alignment noted, CVA tenderness, is absent, Right paraspinal mm ttp, Vital Signs: 07:27 BP 144 / 92; Pulse 78; Resp 16; Temp 98.5(TE); Pulse Ox 98% on R/A; Weight 149.69 kg; ss Height 5 ft. 9 in. ; Pain 7/10; 09:10 BP 146 / 98; Pulse 78; Resp 18; Pulse Ox 98% ; ap3 07:27 Body Mass Index 48.73 (149.69 kg, 175.26 cm) ss 07:27 Pain Scale: Adult ss MDM: 07:58 Medical Screening Exam initiated ms3 10:07 Differential diagnosis: strain, Herniated disc UTI, Nephrolithiasis. Data reviewed: ms3 vital signs, nurses notes, lab test result(s), radiologic studies, and as a result, I will discharge patient. I considered the following discharge prescriptions or medication management in the emergency department Medications were administered in the Emergency Department. See MAR. Counseling: I had a detailed discussion with the patient and/or guardian regarding the historical points, exam findings, and any diagnostic results supporting the discharge/admit diagnosis, lab results, radiology results, the need for outpatient follow up, to return to the emergency department if symptoms worsen or persist or if there are any questions or concerns that arise at home. Special discussion: I discussed with the patient/guardian in detail that at this point there is no indication for admission to the hospital. It is understood, however, that if the symptoms persist or worsen the patient needs to return immediately for re-evaluation. ED course: Discussed labs, urinalysis, CT scan with patient and his . Patient to follow-up with Dr. Dominguez in 2 to 3 days. Patient understands agrees with plan. All questions were answered. Return precautions discussed include worsening symptoms, or any other concerns. On reevaluation patient is alert and oriented x 4, no apparent distress, nontoxic-appearing, speaking full sentences, ambulatory in the emergency department.. 11/08 07:25 Order name: BMP; Complete Time: 09:04 ms3 11/08 07:25 Order name: CBC with Diff; Complete Time: 09:04 ms3 11/08 07:25 Order name: Urinalysis w/ reflexes; Complete Time: 09:04 ms3 11/08 09:04 Order name: CT Abd/Pelvis - Without Contrast; Complete Time: 10:04 ms3 Administered Medications: 08:38 Drug: Ketorolac IVP 10 mg 10 mg IVP once Route: IVP; Site: left antecubital; ap3 10:35 Follow up: Response: No adverse reaction; Pain is decreased ap3 Disposition Summary: 11/08/24 10:07 Discharge Ordered Notes: Location: Home ms3 Condition: Stable ms3 Diagnosis - Right flank pain ms3 Followup: ms3 - With: William Dominguez DO - When: 2 - 3 days - Reason: Recheck today's complaints Discharge Instructions: - Discharge Summary Sheet ms3 - Flank Pain, Adult, [id number] ms3 Forms: - Medication Reconciliation Form ms3 - Antibiotic Education ms3 - Prescription Opioid Use ms3 - Patient Portal Instructions ms3 - Leadership Thank You Letter ms3 Signatures: Dispatcher [employer] EDNicole Burnham RN RN Colleen Pennington RN RN ap3 Robinson Schaffer DO DO ms3 Corrections: (The following items were deleted from the chart) 07:25 07:25 BASIC METABOLIC PANEL+C.LAB.BRZ ordered. EDMS EDMS 07:25 07:25 CBC+H.LAB.BRZ ordered. EDMS EDMS 07:25 07:25 Urinalysis+U.LAB.BRZ ordered. EDMS EDMS
--- NOTE | 2024-11-08 10:08 | ER ---
Nurse's Notes [facility] Name: Donnie Hughes Age: 29 yrs Sex: Male : 1995 Arrival Date: 11/08/2024 Time: 07:16 Bed 19 [facility] MD: Diagnosis: Right flank pain Presentation: 11/08 07:27 Chief complaint: Patient states: R flank pain that began 2-3 hours ago. Also reports ss urinary frequency x 3 days. Coronavirus screen: Client denies travel out of the [place] in the last 14 days. Ebola Screen: Patient denies exposure to infectious person. Patient denies travel to an Ebola-affected area in the 21 days before illness onset. Initial Sepsis Screen: Does the patient meet any 2 criteria? No. Patient's initial sepsis screen is negative. Does the patient have a suspected source of infection? No. Patient's initial sepsis screen is negative. Risk Assessment: Do you want to hurt yourself or someone else? Patient reports no desire to harm self or others. Onset of symptoms was October 2024. 07:27 Method Of Arrival: Ambulatory ss 07:27 Acuity: QUE 3 ss Historical: - Allergies: 07:29 Amoxicillin; ss 07:29 Augmentin (Vomiting); ss 07:29 Biaxin (Vomiting); ss 07:29 Clarithromycin; ss - PMHx: 07:29 Depression; ss - PSHx: 07:29 None; ss - Immunization history:: Client reports receiving the 2nd dose of the Covid vaccine. - Infectious Disease History:: Denies. - Social history:: Smoking status: Patient denies any tobacco usage or history of. Screenin:40 [facility] ED Fall Risk Assessment (Adult) History of falling in the last 3 months, ap3 including since admission No falls in past 3 months (0 pts) Confusion or Disorientation No (0 pts) Intoxicated or Sedated No (0 pts) Impaired Gait No (0 pts) Mobility Assist Device Used No (0 pt) Altered Elimination No (0 pt) Score/Fall Risk Level 0 - 2 = Low Risk Oriented to surroundings, Maintained a safe environment, Educated pt \T\ family on fall prevention, incl call for assistance when getting out of bed, Assessed \T\ reinforced patient's understanding of fall precautions, Hourly rounding (assess needs \T\ fall precautionary measures) done, Used ambulatory aids as needed (educated on \T\ assisted with), Used gait belt as appropriate. Abuse screen: Denies threats or abuse. Nutritional screening: No deficits noted. Tuberculosis screening: No symptoms or risk factors identified. Assessment: 07:39 General: Appears uncomfortable, Behavior is calm, cooperative, appropriate for age. ap3 Pain: Complains of pain in right mid back and right low back. Neuro: Level of Consciousness is awake, alert, obeys commands, Oriented to person, place, time, situation, Appropriate for age. Cardiovascular: Patient's skin is warm and dry. Respiratory: Airway is patent Respiratory effort is even, unlabored, Respiratory pattern is regular, symmetrical. : Reports urinary frequency. 07:40 GI: Abd is soft. ap3 10:36 GI: Abdomen is non-distended, Bowel sounds present X 4 quads. ap3 Vital Signs: 07:27 BP 144 / 92; Pulse 78; Resp 16; Temp 98.5(TE); Pulse Ox 98% on R/A; Weight 149.69 kg; ss Height 5 ft. 9 in. ; Pain 7/10; 09:10 BP 146 / 98; Pulse 78; Resp 18; Pulse Ox 98% ; ap3 07:27 Body Mass Index 48.73 (149.69 kg, 175.26 cm) ss 07:27 Pain Scale: Adult ss ED Course: 07:17 Patient arrived in ED. im 07:25 Robinson Schaffer DO is Attending Physician. ms3 07:29 Triage completed. ss 07:29 Arm band placed on right wrist. ss 07:38 Colleen Pennington, RN is Primary Nurse. ap3 07:40 Patient has correct armband on for positive identification. Bed in low position. Call ap3 light in reach. Side rails up X 1. Adult w/ patient. Provided Education on: call light education. Pulse ox on. NIBP on. 08:30 Inserted saline lock: 20 gauge in left antecubital area, using aseptic technique. Blood sa1 collected. Flushed with 10 mL NS. 08:34 Urinalysis w/ reflexes Sent. sa1 08:34 CBC with Diff Sent. sa1 08:34 BMP Sent. sa1 09:26 CT Abd/Pelvis - Without Contrast In Process Unspecified. EDMS 10:07 William Dominguez DO is Referral Physician. ms3 10:35 No provider procedures requiring assistance completed. IV discontinued, intact, ap3 bleeding controlled, No redness/swelling at site. Pressure dressing applied. Administered Medications: 08:38 Drug: Ketorolac IVP 10 mg 10 mg IVP once Route: IVP; Site: left antecubital; ap3 10:35 Follow up: Response: No adverse reaction; Pain is decreased ap3 Medication: 10:36 VIS not applicable for this client. ap3 Outcome: 10:07 Discharge ordered by . ms3 10:36 Discharged to home ambulatory, with family, ap3 10:36 Condition: good 10:36 Discharge instructions given to patient, Instructed on discharge instructions, follow up and referral plans. Demonstrated understanding of instructions, follow-up care, 10:36 Patient left the ED. ap3 Signatures: Dispatcher [employer] EDMS Nicole Rodrigues RN RN Colleen Pennington RN RN ap3 Robinson Schaffer DO DO ms3 Elyssa Sandoval Sultan 1
[2024-11-08 10:49] VITALS: TEMP 98.5; O2SAT 98
[2024-11-08 10:55] VITALS: BP 146/98
== END 2024-11-08 10:36 | disposition home or self-care (01) ==
LOC: ER 07:16
DX: R10.31 Right lower quadrant pain (principal); M54.50 Low back pain, unspecified; Z87.442 Personal history of urinary calculi
CPT/HCPCS: 85025; 80048; 36415; 81003; 74176; 96374; 99284; Q9967; J7512